=== PATIENT | female | born 1995 | race Caucasian/White ===

== ENCOUNTER 2022-08-29 05:58 | Emergency (ER) | payer SELFPAY ==
[~2022-08-29] VITALS: Ht 167.6 cm; Wt 72.6 kg
[2022-08-29 06:08] VITALS: BP 120/78
--- NOTE | 2022-08-29 06:18 | NUR ---
TO BED 1
[2022-08-29] MEDS ORDERED: HYDROcodone/APAP 5/325 MG 1 TAB TAB PO ONE (06:20)
[2022-08-29 06:55] VITALS: BP 122/74
--- NOTE | 2022-08-29 06:56 | NUR ---
Patient discharged with v/s stable. Written and verbal after care instructions given and explained. Patient verbalized understanding. Ambulatory with steady gait. All questions addressed prior to discharge. Advised to follow up with PMD.
== END 2022-08-29 06:56 | disposition home or self-care (01) ==
LOC: MED 05:58
DX: H66.91 Otitis media, unspecified, right ear (principal)
CPT/HCPCS: 99283